=== PATIENT | male | born 1995 | race Hispanic/Latino ===

== ENCOUNTER 2023-01-09 00:38 | Emergency (ER) | payer OTHER ==
[~2023-01-09] VITALS: Ht 172.7 cm; Wt 98.0 kg
[2023-01-09] MEDS ORDERED: CIPRO500 MG PO (02:09)
[2023-01-09] MEDS ORDERED: HYDROCODON-ACE1 EA10 PO (02:09)
[2023-01-09 02:23] VITALS: BP 125/81
== END 2023-01-09 02:24 | disposition home or self-care (01) ==
LOC: ED 00:38
DX: N45.1 Epididymitis (principal)
CPT/HCPCS: 36415; 76870; 80053; 81001; 85025; 96374; 96375; 99284-25; A9270; J1885; J2270; J2405

== ENCOUNTER 2025-03-29 18:43 | Emergency (ER) | payer OTHER ==
[~2025-03-29] VITALS: Ht 180.3 cm; Wt 90.0 kg
[~2025-03-29 18:43] MED LIST: CIPRO500 MG PO; HYDROCODON-ACE1 EA10 PO
[2025-03-29] MEDS ORDERED: AMPHETAMINE SAL10 MG PO (18:54)
[2025-03-29 19:58] LABS: BASOPHILS 0.3 % (0.2-1.2); EOSINOPHILS 1.0 % (0.8-7.0); LYMPHOCYTES 32.6 % (21.8-53.1); MCH 29.6 PG (25.7-32.2); MCHC 34.2 g/dL (32.3-36.5); MCV 86.4 fL (79.0-92.2); MONOCYTES 6.0 % (5.3-12.2); NEUTROPHILS 59.8 % (34.0-67.9); RBC 5.14 M/uL (4.63-6.08)
[2025-03-29 20:14] LABS: INR 0.99 (0.80-1.30); PROTIME 12.4 Sec (11.2-14.2)
[2025-03-29 20:22] LABS: ALT (SGPT) 105.0 U/L (14-59); AST (SGOT) 34.0 U/L (15-37); GLOMERULAR FILTRATION RATE,EST 80.0 mL/min (>60); PROTEIN, TOTAL 8.2 g/dL (6.4-8.2); UREA NITROGEN 17.0 mg/dL (7-18)
[2025-03-29] MEDS ORDERED: SODIUM CHLORIDE 0.9% 1,000 ML IV ONE (20:45)
[2025-03-29 22:00] LABS: GLOMERULAR FILTRATION RATE,EST 104.0 mL/min (>60); UREA NITROGEN 13.0 mg/dL (7-18)
[2025-03-29] MEDS ORDERED: POTASSIUM CHLORIDE 10 MEQ TABCR PO ONE (22:15)
[2025-03-29] MEDS ORDERED: CALCIUM CARBONATE 500 MG CHEW PO ONE (22:15)
[2025-03-29 22:40] VITALS: BP 121/73
--- NOTE | 2025-03-30 20:34 | EKG ---
[facility] [address] [facility] [place] [address] Signed Normal sinus rhythm Nonspecific intraventricular block Abnormal ECG No previous ECGs available Confirmed by Darwin Snider MD () on 03/30/2025 8:34:29 PM Electronically Signed By: DARWIN SNIDER MD 03/30/252033 PATIENT NAME: АННА LATIF ADONAY Electrocardiogram DATE OF : [birth year] PHYSICIAN: DARWIN SNIDER MD REPORT #: [id number] REPORT IS CONFIDENTIAL AND NOT TO BE RELEASED WITHOUT AUTHORIZATION
== END 2025-03-29 22:41 | disposition home or self-care (01) ==
LOC: ED 18:43
PROVIDERS: Family Medicine
DX: T75.4XXA Electrocution, initial encounter (principal); W86.8XXA Exposure to other electric current, initial encounter
CPT/HCPCS: 36415; 80048; 80053; 82550; 82803; 83605; 83735; 84484; 85025; 85610; 86140; 93005; 93010; 99283; A9270; J7030